=== PATIENT | male | born 1945 | race Caucasian/White ===

== ENCOUNTER 2020-08-03 14:17 | Outpatient (CLI) | payer MEDICARE ==
[2020-08-03 16:03] LABS: Bilirubin Neg (Negative); Blood, Urine Negative (Negative); Clarity Clear (Clear); Glucose, Urine (Dipstick) Normal (Negative); Ketone, Urine Negative (Negative); Leukocyte 25 (Negative); Nitrite Negative (Negative); Protein, Urine (Dipstick) 15 mg/dl (Neg-Trace); Urobilinogen Normal mg/dL (Less than 2); pH, Urine 6.5 (5.0-9.0)
[2020-08-03 16:23] LABS: #Basophils 0.1 10x3/uL (0.0-0.2); #Eosinphils 0.1 10x3/uL (0.0-0.5); #Monocytes 0.6 10x3/uL (0.0-1.1); #Neutrophils 3.7 10x3/uL (1.5-8.4); %Basophils 0.7 % (0.0-2.0); %Lymphocytes 35.3 % (18.0-47.0); %Neutrophils 54.3 % (40.0-75.0); Hemoglobin 18.3 g/dL (13.5-17.5); Mean Corpuscular HGB CONC 32.3 g/dL (32.0-36.0); Mean Corpuscular Volume 89.8 fl (81.2-95.1); Mean Platelet Volume 10.6 fl (7.4-10.4); Platelet Count 189 10x3/uL (150-450); RBC Distribution Width 13.8 % (11.5-14.5); White Blood Cell (WBC) Count 6.9 10x3/uL (3.5-10.5)
[2020-08-03 16:25] LABS: Bacteria/HPF None Seen HPF (None Seen); RBC/HPF None Seen HPF (0-3); Squamous Epithelial None Seen HPF (0-3); WBC/HPF 0-3 HPF (0-3)
[2020-08-03 16:36] LABS: Anion Gap 14 mmol/L (10-20); BUN (Urea Nitrogen) 17 mg/dL (8.4-25.7); Calc. Creatinine Clearance 0 mL/min (70-130); Calcium 9.4 mg/dL (7.8-10.44); Carbon Dioxide 26 mmol/L (23-31); Chloride 105 mmol/L (98-107); Glucose 81 mg/dL (83-110); Potassium 4.8 mmol/L (3.5-5.1); Sodium 140 mmol/L (136-145)
[2020-08-03 16:40] LABS: Prothrombin Time 11.5 sec (9.5-12.1)
[2020-08-04 01:35] LABS: SARS-CoV-2 PCR by NAA Not Detected (NotDetected)
== END 2020-08-03 14:18 | disposition home or self-care (01) ==
LOC: LABBT 14:17
PROVIDERS: ATTEND Orthopaedic Surgery
DX: Z01.818 Encounter for other preprocedural examination (principal); M17.12 Unilateral primary osteoarthritis, left knee; Z20.822 Contact with and (suspected) exposure to COVID-19
CPT/HCPCS: 80048; 81001; 85025; 85610; 87081; U0003; U0005; 87635; 93005; 93010

== ENCOUNTER 2020-08-08 07:55 | Inpatient (IN) | payer MEDICARE ==
[2020-08-07 11:10] VITALS: BMI 42.5
[2020-08-08] MEDS ORDERED: Tranexamic Acid 1,000 MG/10 ML VIAL ONE (08:27)
[2020-08-08] MEDS ORDERED: Sodium Chloride 0.9% 100 ML ONE (08:28)
[2020-08-08] MEDS ORDERED: Vancomycin 1.5 GRAM/300 ML BAG 1.5 GM in Premix Bag 1 BAG IVPB SCH (08:30)
[2020-08-08] MEDS ORDERED: Midazolam HCl 2 mg/2 ml Vial ONE (09:25)
[2020-08-08] MEDS ORDERED: Fentanyl 100 MCG/2 ML VIAL ONE ×4 (09:25→15:57)
[2020-08-08] MEDS ORDERED: Lidocaine 1% (PF) 30 ML VIAL ONE (09:25)
[2020-08-08] MEDS ORDERED: traMADol HCl 50 MG TAB PO PRN ×2 (10:49→13:30)
[2020-08-08] MEDS ORDERED: Ondansetron PF 4 MG/2 ML Vial IVP PRN ×2 (10:49→13:30)
[2020-08-08] MEDS ORDERED: Acetaminophen 325 MG TAB PO PRN (10:49)
[2020-08-08] MEDS ORDERED: HYDROcodone/Acetaminophen 10/325 mg Tablet PO PRN ×3 (10:49→13:30)
[2020-08-08] MEDS ORDERED: diphenhydrAMINE 25 MG CAP PO PRN (10:49)
[2020-08-08] MEDS ORDERED: Zolpidem Tartrate 5 MG TAB PO PRN ×2 (10:49→13:30)
[2020-08-08] MEDS ORDERED: Promethazine HCl 25 MG/ML VIAL IM PRN ×3 (10:49→13:30)
[2020-08-08] MEDS ORDERED: PHENYLEPHRINE-NS 100 MCG/ML 10 ML SYRINGE ONE (11:12)
[2020-08-08] MEDS ORDERED: Bupivacaine HCl 0.5%/Epinephrine 1:200,000/PF 30 ml Vial ONE (11:12)
[2020-08-08] MEDS ORDERED: Ropivacaine 2% HCl/PF (20 MG/10 ML VIAL) ONE (11:12)
[2020-08-08] MEDS ORDERED: PROPOFOL 200 MG/20 ML VIAL ONE (11:12)
[2020-08-08] MEDS ORDERED: Dexamethasone 20 MG/5 ML VIAL ONE (11:12)
[2020-08-08] MEDS ORDERED: Ondansetron PF 4 MG/2 ML Vial ONE (11:12)
[2020-08-08] MEDS ORDERED: Ondansetron HCl/PF 4 MG/2 ML Vial IVP PRN (12:55)
[2020-08-08] MEDS ORDERED: Promethazine HCl 25 MG/ML VIAL SLOW IVP PRN (12:55)
[2020-08-08] MEDS ORDERED: Fentanyl 100 MCG/2 ML VIAL SLOW IVP PRN (13:21)
[2020-08-08] MEDS ORDERED: Ropivacaine 0.2% 550 ML 550 ML NERVE BLCK SCH (13:30)
[2020-08-08] MEDS: Ketorolac Tromethamine 30 MG/ML VIAL IVP SCH ×2 (17:48→22:12)
[2020-08-08] MEDS: CEFAZOLIN 2 GM in Premix Bag 1 BAG IVPB SCH (18:22)
[2020-08-08] MEDS: traMADol HCl 50 MG TAB PO PRN (18:24)
[2020-08-08] MEDS: Aspirin 81 mg Enteric Coated Tablet PO SCH (20:13)
[2020-08-08] MEDS: Nebivolol HCl 5 MG TAB PO SCH (20:14)
[2020-08-09] MEDS: CEFAZOLIN 2 GM in Premix Bag 1 BAG IVPB SCH (00:30)
[2020-08-09] MEDS: Thyroid 60 MG TAB PO SCH (05:38)
[2020-08-09] MEDS: Ketorolac Tromethamine 30 MG/ML VIAL IVP SCH ×3 (05:39→21:57)
[2020-08-09] MEDS: traMADol HCl 50 MG TAB PO PRN ×2 (05:40→23:03)
[2020-08-09 05:44] LABS: Hemoglobin 16.5 g/dL (14.0-18.0); Mean Corpuscular HGB CONC 33.6 g/dL (32.0-36.0); Mean Corpuscular Hemoglobin 30.8 pg (27.0-31.0); Mean Corpuscular Volume 91.8 fL (78.0-98.0); Mean Platelet Volume 8.2 fL (7.4-10.4); Platelet Count 189 thou/uL (130-400); RBC Distribution Width 12.9 % (11.5-14.5); Red Blood Cell (RBC) Count 5.34 mill/uL (4.70-6.10); White Blood Cell (WBC) Count 13.4 thou/uL (4.8-10.8)
[2020-08-09] MEDS: Ferrous Gluconate 324 MG TAB PO SCH ×2 (08:19→16:15)
[2020-08-09] MEDS: Nebivolol HCl 5 MG TAB PO SCH ×2 (08:19→19:45)
[2020-08-09] MEDS: Aspirin 81 mg Enteric Coated Tablet PO SCH ×2 (08:19→19:45)
[2020-08-09] MEDS: Multivitamin W/ Minerals 1 TAB PO SCH (08:19)
[2020-08-09] MEDS: Senokot S 8.6-50 MG TAB PO SCH ×2 (08:19→19:45)
[2020-08-09] MEDS: Stress 600 With Zinc 1 TAB PO SCH (08:52)
[2020-08-09] MEDS: HYDROcodone/Acetaminophen 10/325 mg Tablet PO PRN ×2 (08:55→13:18)
[2020-08-09] MEDS ORDERED: Aspirin 81 mg Enteric Coated Tablet PO SCH (09:00)
[2020-08-10] MEDS: Ketorolac Tromethamine 30 MG/ML VIAL IVP SCH (05:19)
[2020-08-10] MEDS: Thyroid 60 MG TAB PO SCH (05:20)
[2020-08-10] MEDS: traMADol HCl 50 MG TAB PO PRN (05:26)
[2020-08-10] MEDS: HYDROcodone/Acetaminophen 10/325 mg Tablet PO PRN (08:44)
[2020-08-10] MEDS: Senokot S 8.6-50 MG TAB PO SCH (08:45)
[2020-08-10] MEDS: Multivitamin W/ Minerals 1 TAB PO SCH (08:45)
[2020-08-10] MEDS: Nebivolol HCl 5 MG TAB PO SCH (08:45)
[2020-08-10] MEDS: Ferrous Gluconate 324 MG TAB PO SCH (08:45)
[2020-08-10] MEDS: Aspirin 81 mg Enteric Coated Tablet PO SCH (08:45)
[2020-08-10] MEDS: Stress 600 With Zinc 1 TAB PO SCH (09:33)
[2020-08-10 11:33] VITALS: BP 111/77; TEMP 98.7
== END 2020-08-10 13:15 | disposition home or self-care (01) | DRG 470 ==
LOC: SDC 07:55 → SURG A 10:50
PROVIDERS: ADMIT Orthopaedic Surgery; ATTEND Orthopaedic Surgery
PROC: 0SRD0J9 Replacement of Left Knee Joint with Synthetic Substitute, Cemented, Open Approach (ICD-10-PCS; principal; 2020-08-08)
DX: M17.0 Bilateral primary osteoarthritis of knee (principal); E03.9 Hypothyroidism, unspecified; I10 Essential (primary) hypertension; M21.162 Varus deformity, not elsewhere classified, left knee; Z96.1 Presence of intraocular lens; Z20.822 Contact with and (suspected) exposure to COVID-19; Z98.42 Cataract extraction status, left eye; Z98.41 Cataract extraction status, right eye; Z98.890 Other specified postprocedural states
CPT/HCPCS: 36415; 85027; A4306; C1713; C1776; J0690; J1100; J1885; J2001; J2250; J2405; J2704; J2795; J3010; J3370; J3490